=== PATIENT | female | born 1940 | race Caucasian/White ===

== ENCOUNTER 2017-07-04 19:08 | Inpatient (IN) | payer OTHER ==
[~2017-07-04] VITALS: Ht 165.1 cm; Wt 82.1 kg
[2017-07-04 21:32] LABS: HEMATOCRIT 34.1 % (36.0-46.0); MCH 29.5 PG (29.0-34.0); MCHC 31.1 G/DL (30.0-36.0); MEAN PLAT.VOLUME 9.7 uM^3 (9.5-12.4); PLATELET COUNT 337 K/uL (156-360); RBC DIS.WIDTH-CV 16.5 % (11.8-14.6); RBC DIS.WIDTH-SD 57.7 % (39-53); RED BLOOD COUNT 3.59 M/uL (3.80-5.20); WHITE BLOOD COUNT 9.2 K/uL (4.1-10.2)
[2017-07-04 21:45] LABS: CHLORIDE 111 mEq/L (99-109); POTASSIUM 3.8 mEq/L (3.7-5.4); SODIUM 142 mEq/L (136-147)
[2017-07-04 21:48] LABS: ANION GAP 14 MEQ/L (2-14)
[2017-07-04 21:49] LABS: TOTAL BILIRUBIN 0.3 mg/dL (0.0-1.0)
[2017-07-04 21:51] LABS: GFR ESTIMATE (CALCULATED) 39 mL/min/
[2017-07-04 22:12] LABS: GLUCOSE 112 mg/dL (70-99)
[2017-07-04 22:16] LABS: ALKALINE PHOSPHATASE 93 IU/L (3-129)
[2017-07-04 22:17] LABS: UREA NITROGEN (BUN) 31 mg/dL (9-23)
[2017-07-04 22:50] LABS: C-REACTIVE PROTEIN 45.5 MG/L (0-10)
[2017-07-04 23:17] LABS: TROP-I INTERPRETATION NEGATIVE
[2017-07-05] VITALS (7 sets, daily range): BP systolic 102–139; BP diastolic 51–61
[2017-07-05 00:07] LABS: TROP-I INTERPRETATION NEGATIVE; TROPONIN-I 0.05 ng/mL (0.0-0.30)
[2017-07-05 05:59] LABS: TROP-I INTERPRETATION NEGATIVE
[2017-07-05 09:34] LABS: EOSINOPHIL (%) 8.4 % (0-5); EOSINOPHIL COUNT 0.6 K/uL (0-0.3); HEMATOCRIT 29.4 % (36.0-46.0); IMMATURE GRANULOCYTE (%) 0.3 % (0.0-0.7); INSTRUMENT ABS NEUTROPHIL CT 3.2 K/uL; LYMPHOCYTE COUNT 2.4 K/uL (1.0-2.8); MCH 29.7 PG (29.0-34.0); MCHC 30.6 G/DL (30.0-36.0); MEAN PLAT.VOLUME 9.4 uM^3 (9.5-12.4); MONOCYTE (%) 6.3 % (3-12); MONOCYTE COUNT 0.4 K/uL (0-0.8); NEUTROPHIL (%) 48.3 % (45-76); NEUTROPHIL COUNT 3.2 K/uL (1.8-6.4); PLATELET COUNT 247 K/uL (156-360); RBC DIS.WIDTH-CV 16.6 % (11.8-14.6); RBC DIS.WIDTH-SD 59.5 % (39-53); RED BLOOD COUNT 3.03 M/uL (3.80-5.20); WHITE BLOOD COUNT 6.6 K/uL (4.1-10.2)
[2017-07-05 09:58] LABS: ANION GAP 6 MEQ/L (2-14); CHLORIDE 114 MEQ/L (99-109); GFR ESTIMATE (CALCULATED) 57 mL/min/; GLUCOSE 98 mg/dL (70-99); POTASSIUM 3.6 MEQ/L (3.7-5.4); SAMPLE HEMOLYSIS CHECK 0; SAMPLE ICTERIC CHECK 0; SAMPLE LIPEMIA CHECK 0; SODIUM 141 MEQ/L (136-147); UREA NITROGEN (BUN) 24 mg/dL (9-23)
[2017-07-05 10:11] LABS: TROP-I INTERPRETATION NEGATIVE; TROPONIN-I 0.07 ng/mL (0.0-0.30)
[2017-07-05] MEDS ORDERED: CIPRO500 MG PO (14:18)
[2017-07-05] MEDS ORDERED: LOW DOSE ASPIRI81 M1 PO (14:19)
[2017-07-06 00:15] VITALS: BP 114/58
[2017-07-06 04:15] VITALS: BP 105/51
[2017-07-06 05:20] LABS: HEMATOCRIT 27.2 % (36.0-46.0); MCH 29.2 PG (29.0-34.0); MCHC 30.1 G/DL (30.0-36.0); MCV 96.8 FL (83-99); MEAN PLAT.VOLUME 9.8 uM^3 (9.5-12.4); PLATELET COUNT 233 K/uL (156-360); RBC DIS.WIDTH-CV 16.3 % (11.8-14.6); RBC DIS.WIDTH-SD 58.4 % (39-53); RED BLOOD COUNT 2.81 M/uL (3.80-5.20); WHITE BLOOD COUNT 5.5 K/uL (4.1-10.2)
[2017-07-06 06:06] LABS: ANION GAP 8 MEQ/L (2-14); CHLORIDE 112 MEQ/L (99-109); GFR ESTIMATE (CALCULATED) 42 mL/min/; GLUCOSE 87 mg/dL (70-99); SAMPLE HEMOLYSIS CHECK 0; SAMPLE ICTERIC CHECK 0; SAMPLE LIPEMIA CHECK 0; SODIUM 140 MEQ/L (136-147); UREA NITROGEN (BUN) 25 mg/dL (9-23)
[2017-07-06 06:08] LABS: POTASSIUM 4.7 MEQ/L (3.7-5.4)
[2017-07-06 07:45] VITALS: BP 136/63
[2017-07-06 11:36] VITALS: BP 139/63
[2017-07-06 16:07] VITALS: BP 164/74
[2017-07-06 19:50] VITALS: BP 128/60
[2017-07-07] VITALS (7 sets, daily range): BP systolic 130–163; BP diastolic 60–117
[2017-07-07 05:23] LABS: HEMATOCRIT 27.8 % (36.0-46.0); MCH 29.5 PG (29.0-34.0); MCHC 30.6 G/DL (30.0-36.0); MCV 96.5 FL (83-99); MEAN PLAT.VOLUME 9.9 uM^3 (9.5-12.4); PLATELET COUNT 248 K/uL (156-360); RBC DIS.WIDTH-CV 16.1 % (11.8-14.6); RBC DIS.WIDTH-SD 56.9 % (39-53); RED BLOOD COUNT 2.88 M/uL (3.80-5.20); WHITE BLOOD COUNT 6.5 K/uL (4.1-10.2)
[2017-07-07 05:59] LABS: ANION GAP 7 MEQ/L (2-14); CHLORIDE 112 MEQ/L (99-109); GFR ESTIMATE (CALCULATED) 39 mL/min/; POTASSIUM 4.2 MEQ/L (3.7-5.4); SAMPLE HEMOLYSIS CHECK 0; SAMPLE ICTERIC CHECK 0; SAMPLE LIPEMIA CHECK 0; SODIUM 138 MEQ/L (136-147); UREA NITROGEN (BUN) 23 mg/dL (9-23)
[2017-07-07 06:00] LABS: GLUCOSE 109 mg/dL (70-99)
[2017-07-08 03:30] VITALS: BP 143/64
[2017-07-08 05:31] LABS: HEMATOCRIT 27.2 % (36.0-46.0); MCH 29.4 PG (29.0-34.0); MCHC 30.9 G/DL (30.0-36.0); MCV 95.1 FL (83-99); MEAN PLAT.VOLUME 10.1 uM^3 (9.5-12.4); PLATELET COUNT 252 K/uL (156-360); RBC DIS.WIDTH-CV 15.8 % (11.8-14.6); RBC DIS.WIDTH-SD 55.1 % (39-53); RED BLOOD COUNT 2.86 M/uL (3.80-5.20); WHITE BLOOD COUNT 5.6 K/uL (4.1-10.2)
[2017-07-08 05:58] LABS: ANION GAP 6 MEQ/L (2-14); CHLORIDE 111 MEQ/L (99-109); GFR ESTIMATE (CALCULATED) 47 mL/min/; GLUCOSE 86 mg/dL (70-99); POTASSIUM 4.2 MEQ/L (3.7-5.4); SAMPLE HEMOLYSIS CHECK 0; SAMPLE ICTERIC CHECK 0; SAMPLE LIPEMIA CHECK 0; SODIUM 137 MEQ/L (136-147); UREA NITROGEN (BUN) 20 mg/dL (9-23)
[2017-07-08 09:00] VITALS: BP 162/72
[2017-07-08 11:23] VITALS: BP 137/61
[2017-07-08 16:43] VITALS: BP 111/84
[2017-07-08 17:55] VITALS: BP 172/72
[2017-07-08 19:23] VITALS: BP 166/69
[2017-07-08 22:58] LABS: C DIFF TOXIN NEGATIVE (NEGATIVE)
[2017-07-08 22:59] LABS: PROBE CHECK PASS; SPECIMEN PROCESSING CONTROL PASS
[2017-07-09 00:16] VITALS: BP 135/72
[2017-07-09 08:12] VITALS: BP 138/63
[2017-07-09 11:08] LABS: HEMATOCRIT 27.1 % (36.0-46.0); MCH 29.2 PG (29.0-34.0); MCHC 30.6 G/DL (30.0-36.0); MCV 95.4 FL (83-99); MEAN PLAT.VOLUME 10.1 uM^3 (9.5-12.4); PLATELET COUNT 254 K/uL (156-360); RBC DIS.WIDTH-CV 15.7 % (11.8-14.6); RBC DIS.WIDTH-SD 54.2 % (39-53); RED BLOOD COUNT 2.84 M/uL (3.80-5.20); WHITE BLOOD COUNT 6.6 K/uL (4.1-10.2)
[2017-07-09 13:00] VITALS: BP 147/68
[2017-07-09 15:50] VITALS: BP 140/65
[2017-07-09 16:37] LABS: IRON 42 MCG/DL (35-150)
[2017-07-09 16:42] LABS: FERRITIN 56 NG/ML (10-291)
[2017-07-09 19:30] VITALS: BP 152/76
[2017-07-09 23:48] VITALS: BP 140/72
[2017-07-10 07:20] VITALS: BP 168/73
[2017-07-10 11:15] VITALS: BP 131/61
[2017-07-10 15:40] VITALS: BP 142/65
[2017-07-10 19:58] VITALS: BP 130/60
[2017-07-10 23:46] VITALS: BP 148/68
[2017-07-11 04:19] VITALS: BP 139/63
[2017-07-11 06:24] LABS: HEMATOCRIT 30.3 % (36.0-46.0); MCH 29.3 PG (29.0-34.0); MCV 91.5 FL (83-99); MEAN PLAT.VOLUME 9.3 uM^3 (9.5-12.4); PLATELET COUNT 300 K/uL (156-360); RBC DIS.WIDTH-CV 15.8 % (11.8-14.6); RBC DIS.WIDTH-SD 52.4 % (39-53); RED BLOOD COUNT 3.31 M/uL (3.80-5.20); WHITE BLOOD COUNT 8.3 K/uL (4.1-10.2)
[2017-07-11 06:42] LABS: ANION GAP 8 MEQ/L (2-14); CHLORIDE 109 MEQ/L (99-109); GFR ESTIMATE (CALCULATED) 51 mL/min/; GLUCOSE 83 mg/dL (70-99); POTASSIUM 3.8 MEQ/L (3.7-5.4); SAMPLE HEMOLYSIS CHECK 0; SAMPLE ICTERIC CHECK 0; SAMPLE LIPEMIA CHECK 0; SODIUM 138 MEQ/L (136-147); UREA NITROGEN (BUN) 21 mg/dL (9-23)
[2017-07-11 07:38] VITALS: BP 140/65
[2017-07-11] MEDS ORDERED: FERROUS SULFAT325 MG PO (08:55)
[2017-07-11] MEDS ORDERED: LOPRESSOR25 MG PO (08:55)
[2017-07-11] MEDS ORDERED: FOLIC ACID1 MG PO (08:55)
[2017-07-11] MEDS ORDERED: CYANOCOBALAM1000 MCG PO (08:55)
[2017-07-11] MEDS ORDERED: DOXYCYCLINE HY100 M3 PO (08:55)
== END 2017-07-11 11:30 | DRG 300 ==
LOC: EME 19:08 → EDOF 23:53 → ENRESERV 23:56 → 4EAST 07-05 01:59 → 5EAST 07-05 12:09 → 4EAST 07-05 12:09 → ENRESERV 07-08 15:22 → 5EAST 07-08 17:01
PROVIDERS: Emergency Medicine; Hospitalist; Internal Medicine; Physician Assistant
DX: I87.2 Venous insufficiency (chronic) (peripheral) (principal); L97.913 Non-pressure chronic ulcer of unspecified part of right lower leg with necrosis of muscle; L97.922 Non-pressure chronic ulcer of unspecified part of left lower leg with fat layer exposed; B95.62 Methicillin resistant Staphylococcus aureus infection as the cause of diseases classified elsewhere; N17.9 Acute kidney failure, unspecified; L89.152 Pressure ulcer of sacral region, stage 2; I47.1 Supraventricular tachycardia; E87.6 Hypokalemia; D64.9 Anemia, unspecified; I10 Essential (primary) hypertension; R53.1 Weakness; E78.00 Pure hypercholesterolemia, unspecified; E66.9 Obesity, unspecified; G89.29 Other chronic pain; Z68.31 Body mass index [BMI] 31.0-31.9, adult; F17.200 Nicotine dependence, unspecified, uncomplicated
CPT/HCPCS: 73630; 80048; 80053; 82272; 82607; 82728; 82746; 83540; 83605; 84466; 84484; 85025; 85027; 86140; 87040; 87070; 87075; 87076; 87077; 87147; 87186; 87205; 87493; 87801; 93005; 93971; 97530 GO; 97530 GP; 99281; 99285; G0378; J0153; J1644; J2270; J2405; J2543; J3370; J7030; J7050